=== PATIENT | male | born 1985 | race African-American/Black ===

== ENCOUNTER 2019-01-16 20:56 | Emergency (ER) | payer MEDICAID ==
[~2019-01-16] VITALS: Ht 182.9 cm; Wt 72.6 kg
[2019-01-16 21:50] VITALS: BP_SYST 113
--- NOTE | 2019-01-17 02:20 | NUR ---
Patient left without being seen. No further treatment provided. ER MD aware
--- NOTE | 2019-01-17 02:20 | NUR ---
Called pt x3, no answer
== END 2019-01-17 02:20 | disposition left against medical advice (07) ==
LOC: SED 20:56
DX: R05 Cough (principal); R11.10 Vomiting, unspecified; Z53.21 Procedure and treatment not carried out due to patient leaving prior to being seen by health care provider